=== PATIENT | male | born 1990 | race African-American/Black ===

== ENCOUNTER 2024-01-22 20:01 | Emergency (ER) | payer OTHER, MEDICAID ==
[~2024-01-22] VITALS: Ht 177.8 cm; Wt 94.8 kg
[2024-01-22 20:26] VITALS: BP_SYST 115; PULSE 70; RESP 20; TEMP 98; O2SAT 98
[2024-01-22] MEDS ORDERED: IBUP-1969 PO (21:23)
[2024-01-22] MEDS: KETOROLAC TROMETHAMINE 30 MG VIAL IM ONE (21:24)
[2024-01-22] MEDS ORDERED: METH-634 PO (21:25)
[2024-01-22 21:53] VITALS: BP_SYST 128; PULSE 55; RESP 16; TEMP 98; O2SAT 98
== END 2024-01-22 21:50 | disposition home or self-care (01) ==
LOC: SED 20:01
DX: S16.1XXA Strain of muscle, fascia and tendon at neck level, initial encounter (principal); Z79.899 Other long term (current) drug therapy; V89.2XXA Person injured in unspecified motor-vehicle accident, traffic, initial encounter; Y93.89 Activity, other specified; Y92.89 Other specified places as the place of occurrence of the external cause; Y99.8 Other external cause status
CPT/HCPCS: 99283; 96372; J1885